=== PATIENT | male | born 1985 ===

== ENCOUNTER 2017-06-27 07:54 | Emergency (ER) | payer OTHER ==
[2017-06-27 08:12] VITALS: RESP 19; O2SAT 98
--- NOTE | 2017-06-27 08:26 | ED PDOC ---
HPI: Skin/Bite Injury Time Seen by Provider: 06/27/17 08:14 Chief Complaint (Nursing): Abnormal Skin Integrity History Per: Patient Onset/Duration Of Symptoms: Days (3) Current Symptoms Are (Timing): Still Present Quality Of Symptoms: Itching Severity: Moderate Additional Complaint(s): Rash on arms chest, abdomen, back and face x 3 days. Preceded by low grade fever. Mildly itchy. Had Chicken pox as child. Denies cough or headache. Past Medical History Vital Signs: Last Vital Signs Temp 98 F 06/27/17 08:09 Pulse 100 H 06/27/17 08:09 Resp 19 06/27/17 08:09 BP 121/75 06/27/17 08:09 Pulse Ox 98 06/27/17 08:09 - Medical History PMH: No Chronic Diseases - Family History Family History: States: Unknown Family Hx - Home Medications Home Medications: Ambulatory Orders Medication Instructions Recorded Cetirizine HCl [Zyrtec] 10 mg PO DAILY #10 capsule 06/27/17 - Allergies Allergies/Adverse Reactions: Allergies Allergy/AdvReac Type Severity Reaction Status Date / Time No Known Allergies Allergy Verified 06/27/17 08:09 Review of Systems Constitutional: Positive for: Fever Cardiovascular: Negative for: Chest Pain Respiratory: Negative for: Cough, Shortness of Breath Gastrointestinal: Negative for: Nausea, Vomiting, Abdominal Pain Skin: Positive for: Rash Neurological: Negative for: Headache Physical Exam - Physical Exam Appears: Positive for: Non-toxic, No Acute Distress Skin: Positive for: Rash (Vesicular rash, clear fluid with some crusted lesions involving face, chest abd and back. Spares palms and soles of feet. No oral lesions.) Neck: Positive for: Normal, Supple Cardiovascular/Chest: Positive for: Regular Rate, Rhythm Respiratory: Positive for: Normal Breath Sounds Extremity: Positive for: Normal ROM Neurologic/Psych: Positive for: Alert, Oriented. Negative for: Motor/Sensory Deficits - ECG O2 Sat by Pulse Oximetry: 98 Medical Decision Making Medical Decision Making: Rash appears like varicella but pt already had chicken pox as child. Does not recall immunizations Disposition - Clinical Impression Clinical Impression: Viral exanthem - Patient ED Disposition Is Patient to be Admitted: No Counseled Patient/Family Regarding: Studies Performed, Diagnosis, Need For Followup, Rx Given - Disposition Referrals: [facility] [Outside] Disposition: Routine/Home Disposition Time: 08:29 Condition: FAIR Prescriptions: Cetirizine HCl [Zyrtec] 10 mg PO DAILY #10 capsule Instructions: Viral Exanthem Forms: [facility] (Italian), [facility] ED School/Work Excuse
[2017-06-27 08:55] VITALS: BP 120/78; PULSE 78; TEMP 97
== END 2017-06-27 08:55 | disposition home or self-care (01) ==
LOC: H.ER 07:54
DX: B08.8 Other specified viral infections characterized by skin and mucous membrane lesions (principal)